=== PATIENT | female | born 1975 | race Caucasian/White ===

== ENCOUNTER 2023-01-19 13:30 | Emergency (ER) | payer BC, SELFPAY ==
--- NOTE | 2023-01-19 13:35 | ED.ABDPAIN ---
HPI - Abdominal Pain General Chief Complaint: Nausea/Vomiting/Diarrhea Stated Complaint: Diarrhea/Abdominal Pain Time Seen by Provider: 01/19/23 13:57 Source: patient and RN notes reviewed Mode of arrival: ambulatory Limitations: no limitations History of Present Illness HPI narrative: 47-year-old female presents with concern for right upper quadrant abdominal pain that started last night. She reports she has not ate anything since then for fear of it causing pain. She reports she had diarrhea that started last night as well. She reports the diarrhea was persistent overnight but she has not had diarrhea in the last several hours. She denies any vomiting, fever. She reports pain is 8/10 but is intermittent with no exacerbating or relieving factors. MD elicited complaint: abdominal pain Related Data Home Medications Medication Instructions Recorded Confirmed buprenorphine 8 mg-naloxone 2 mg 1 tablet sublingual BID 01/19/23 01/19/23 sublingual tablet Allergies Allergy/AdvReac Type Severity Reaction Status Date / Time Penicillins Allergy Intermediate HIVES Verified 01/19/23 13:51 Review of Systems Review of Systems: CONSTITUTIONAL: Denies malaise, chills, sweats, or fever. ENT: Denies rhinorrhea, congestion, sinus pain, otalgia or sore throat. CARDIOVASCULAR: Denies chest pain, palpitations, or edema. RESPIRATORY: Denies cough or dyspnea. GASTROINTESTINAL: Reports right upper quadrant abdominal pain, diarrhea. Denies nausea, vomiting GENITOURINARY: Denies dysuria or hematuria. MUSCULOSKELETAL: Denies myalgia. NEUROLOGIC: Denies headache. All systems reviewed & are unremarkable except as noted in HPI and below PMFSH Comments At time of signature, agree with nursing past medical, surgical, social and family history. There is no relevant family history pertinent to the presenting complaint Exam Narrative: GENERAL: Nontoxic appear and in no acute distress. HEAD: Normocephalic, atraumatic. EYES: PERRLA, conjunctivae clear, and EOMI. ENT: Nares clear. Mucous membranes moist. NECK: Supple. No lymphadenopathy CHEST: Speaks in full sentences. No respiratory distress. HEART: Regular rate and rhythm. ABDOMEN: Soft, flat, nondistended. Guarding. Right upper quadrant tenderness. No rebound tenderness, or rigidity. No pulsatile masses. Bowel sounds present in all four quadrants. No organomegaly. SKIN: Warm, dry, no rash. NEURO: Alert and oriented x3. PSYCH: Normal mood and affect Course Course Emergency Course: Patient is aware of, understands and agrees to be transferred to the emergency department. Patient agrees to proceed directly to the emergency department. Portions of this record may have been created with voice recognition software Level of Care: Express Care Visit Vital Signs Vital signs: Reviewed. Transfer Transfered to: [facility]) Transportation: Other (Private vehicle) Transfer rationale: Abdominal Accepting physician: darius MDM - Abdominal Pain MDM Narrative Medical decision making narrative: Exam findings warrant further evaluation in the emergency room, patient is non-toxic appearing and is in no distress. Critical Care Time Critical Care Time Critical Care Time: No Discharge Plan Discharge Clinical Impression: Abdominal pain Patient Disposition: Acute Care Hospital Condition: Stable Prescriptions: No Action buprenorphine-naloxone 8-2 mg tablet, sublingual 1 tablet SUBLINGUAL BID Follow-up/Referrals: UNKNOWN,DOCTOR [Non-Staff] - Time of Disposition: 14:05
[2023-01-19 13:40] VITALS: BP 168/97; PULSE 94; RESP 18; TEMP 36.7; O2SAT 98
== END 2023-01-19 14:10 | disposition short-term general hospital (02) ==
PROVIDERS: Emergency Provider Nurse Practitioner
DX: R10.11 Right upper quadrant pain (principal); Z79.899 Other long term (current) drug therapy
CPT/HCPCS: 81003; 99202; G0463